=== PATIENT | female | born 1970 | race Caucasian/White ===

== ENCOUNTER → 2017-05-22 | Outpatient (CLI) | payer BC ==
--- NOTE | 2017-05-23 09:26 | MM ---
Reason for exam: screening (asymptomatic). Last mammogram was performed 1 year and 3 months ago. History: Patient history of other cancer. Family history of premenopausal breast cancer in aunt. Took hormonal contraceptives for 20 years beginning at age 23. Physical Findings: A clinical breast exam by your physician is recommended on an annual basis and results should be correlated with mammographic findings. MG 3D Screening Mammo W/Cad Bilateral CC and MLO view(s) were taken. Prior study comparison: February 28, 2016, bilateral MG 3d screening mammo w/cad. August 24, 2014, bilateral MG screening mammo w CAD. There are scattered fibroglandular densities. There is no discrete abnormality. No significant changes when compared with prior studies. ASSESSMENT: Negative, BI-RAD 1 RECOMMENDATION: Routine screening mammogram of both breasts in 1 year.
== END | disposition home or self-care (01) ==
LOC: RADMAMWWP 10:59
PROVIDERS: ATTEND Obstetrics & Gynecology
DX: Z12.31 Encounter for screening mammogram for malignant neoplasm of breast (principal)
CPT/HCPCS: 77063; G0202

== ENCOUNTER → 2018-07-30 | Outpatient (CLI) | payer BC ==
--- NOTE | 2018-08-01 13:13 | MM ---
Reason for exam: screening (asymptomatic). Last mammogram was performed 1 year and 2 months ago. History: Patient history of other cancer. Family history of premenopausal breast cancer in aunt. Took hormonal contraceptives for 20 years beginning at age 23. Physical Findings: A clinical breast exam by your physician is recommended on an annual basis and results should be correlated with mammographic findings. MG 3D Screening Mammo W/Cad Bilateral CC and MLO view(s) were taken. Prior study comparison: May 22, 2017, bilateral MG 3d screening mammo w/cad. February 28, 2016, bilateral MG 3d screening mammo w/cad. There are scattered fibroglandular densities. No significant changes when compared with prior studies. ASSESSMENT: Negative, BI-RAD 1 RECOMMENDATION: Routine screening mammogram of both breasts in 1 year.
== END | disposition home or self-care (01) ==
LOC: RADMAMWWP 16:00
PROVIDERS: ATTEND Obstetrics & Gynecology
DX: Z12.31 Encounter for screening mammogram for malignant neoplasm of breast (principal); Z80.3 Family history of malignant neoplasm of breast
CPT/HCPCS: 77063; 77067

== ENCOUNTER → 2019-08-01 | Outpatient (CLI) | payer BC ==
--- NOTE | 2019-08-04 10:31 | MM ---
Reason for exam: screening (asymptomatic). Last mammogram was performed 1 year ago. History: Patient history of other cancer. Family history of premenopausal breast cancer in aunt. Took hormonal contraceptives for 26 years beginning at age 23. Physical Findings: A clinical breast exam by your physician is recommended on an annual basis and results should be correlated with mammographic findings. MG 3D Screening Mammo W/Cad Bilateral CC and MLO view(s) were taken. Prior study comparison: July 30, 2018, bilateral MG 3d screening mammo w/cad. May 22, 2017, bilateral MG 3d screening mammo w/cad. There are scattered fibroglandular densities. There is no discrete abnormality. No significant changes when compared with prior studies. ASSESSMENT: Negative, BI-RAD 1 RECOMMENDATION: Routine screening mammogram of both breasts in 1 year.
== END | disposition home or self-care (01) ==
LOC: RADMAMWWP 16:10
PROVIDERS: ATTEND Obstetrics & Gynecology
DX: Z12.31 Encounter for screening mammogram for malignant neoplasm of breast (principal)
CPT/HCPCS: 77063; 77067

== ENCOUNTER → 2021-03-08 | Outpatient (CLI) | payer BC ==
--- NOTE | 2021-03-10 13:40 | MM ---
Reason for exam: screening (asymptomatic). Last mammogram was performed 1 year and 7 months ago. History: Patient has history of other cancer at age 40. Family history of breast cancer in cousin and premenopausal breast cancer in aunt. Took hormonal contraceptives for 26 years beginning at age 23. Physical Findings: A clinical breast exam by your physician is recommended on an annual basis and results should be correlated with mammographic findings. MG 3D Screening Mammo W/Cad Bilateral CC and MLO view(s) were taken. Prior study comparison: August 01, 2019, bilateral MG 3d screening mammo w/cad. July 30, 2018, bilateral MG 3d screening mammo w/cad. There are scattered fibroglandular densities. No significant changes when compared with prior studies. ASSESSMENT: Benign, BI-RAD 2 RECOMMENDATION: Routine screening mammogram of both breasts in 1 year.
== END | disposition home or self-care (01) ==
LOC: RADMAMWWP 14:54
PROVIDERS: ATTEND Obstetrics & Gynecology
DX: Z12.31 Encounter for screening mammogram for malignant neoplasm of breast (principal); Z80.3 Family history of malignant neoplasm of breast
CPT/HCPCS: 77063; 77067

== ENCOUNTER 2022-05-03 16:35 | Emergency (ER) | payer BC ==
[2022-05-03 18:27] LABS: Basophils # (A) 0.1 k/uL (0-0.2); Basophils % (A) 1 %; Eosinophils # (A) 0.1 k/uL (0-0.7); Eosinophils % (A) 1 %; HCT 45.1 % (34.0-46.0); HGB 13.8 gm/dL (11.4-16.0); Hypochromasia Slight; Lymphocytes # (A) 1.7 k/uL (1.0-4.8); Lymphocytes % (A) 15 %; MCH 28.9 pg (25.0-35.0); MCHC 30.7 g/dL (31.0-37.0); MCV 94.3 fL (80.0-100.0); Mean Platelet Volume 8.4; Monocytes # (A) 0.5 k/uL (0-1.0); Monocytes % (A) 4 %; Neutrophils # (A) 9.1 k/uL (1.3-7.7); Neutrophils % (A) 79 %; Platelet Count 419 k/uL (150-450); RBC 4.78 m/uL (3.80-5.40); RDW 13.3 % (11.5-15.5); WBC 11.6 k/uL (3.8-10.6)
[2022-05-03 18:37] LABS: ALT 12 U/L (4-34); AST 21 U/L (14-36); African American GFR (CKD) >90 (>60 ml/min/1.73 sqM); Albumin 4.6 g/dL (3.5-5.0); Alkaline Phosphatase 101 U/L (38-126); Amylase 59 U/L (30-110); Anion Gap 10 mmol/L; Blood Urea Nitrogen 8 mg/dL (7-17); Calcium 9.4 mg/dL (8.4-10.2); Carbon Dioxide 22 mmol/L (22-30); Chloride 108 mmol/L (98-107); Glucose 104 mg/dL (74-99); Lipase 69 U/L (23-300); Non-African American GFR(CKD) >90 (>60 ml/min/1.73 sqM); Potassium 4.2 mmol/L (3.5-5.1); Sodium 140 mmol/L (137-145); Total Bilirubin 0.4 mg/dL (0.2-1.3); Total Protein 7.6 g/dL (6.3-8.2)
[2022-05-03] MEDS ORDERED: ONDANSETRON 4 MG/2 ML VIAL IVP STA (18:43)
[2022-05-03] MEDS ORDERED: SODIUM CHLORIDE 0.9% 1,000 ML IV STA (18:43)
--- NOTE | 2022-05-03 18:52 | ED ---
General Adult HPI - General Chief complaint: Nausea/Vomiting/Diarrhea Stated complaint: dizzy, chills, vomiting Time Seen by Provider: 05/03/22 18:30 Source: patient, RN notes reviewed Mode of arrival: ambulatory Limitations: no limitations - History of Present Illness Initial comments: 52-year-old female presents to the emergency department for evaluation of "feeling poorly." Patient states her symptoms began yesterday with a mild headache, followed by nausea, then felt as if she "just stepped off a roller coaster." Patient states she has had 3 episodes of vomiting with oral intake today. States she continues to feel unwell, but does not describe it as dizzy or lightheaded in particular. States she feels worse with eye movement and felt sick when she looked out the side window in the car. Denies fever, chills, blurry vision, sick exposures, chest pain, cough, difficulty breathing, abdominal pain, diarrhea, dysuria, hematuria, or lower extremity edema. - Related Data Home Medications Medication Instructions Recorded Confirmed Levothyroxine Sodium [Synthroid] 125 mcg PO DAILY 05/03/22 05/03/22 Liothyronine Sodium [Cytomel] 5 mcg PO HS 05/03/22 05/03/22 Liothyronine Sodium [Cytomel] 10 mcg PO DAILY 05/03/22 05/03/22 Norethindrone-E.estradiol-Iron 1 tab PO DAILY 05/03/22 05/03/22 [Cecily 24 Fe 1 mg-20 Mcg Tablet] Previous Rx's Medication Instructions Recorded Meclizine [Antivert] 25 mg PO TID PRN #30 tab 05/03/22 Ondansetron Odt [Zofran Odt] 4 mg PO Q8HR PRN #10 tab 05/03/22 Allergies Allergy/AdvReac Type Severity Reaction Status Date / Time No Known Allergies Allergy Verified 05/03/22 20:03 Review of Systems ROS Statement: Those systems with pertinent positive or pertinent negative responses have been documented in the HPI. ROS Other: All systems not noted in ROS Statement are negative. Past Medical History Past Medical History: Thyroid Disorder Additional Past Medical History / Comment(s): MS History of Any Multi-Drug Resistant Organisms: None Reported Past Surgical History: Appendectomy, Section Additional Past Surgical History / Comment(s): thyroid removal Past Psychological History: No Psychological Hx Reported Smoking Status: Never smoker Past Alcohol Use History: Occasional Past Drug Use History: None Reported General Exam Limitations: no limitations (Well-developed, well-nourished female in no acute distress. Initial temperature 97.9, pulse 78, respiration 16, blood pressure 119/77, pulse ox 100% on room air.) General appearance: alert, in no apparent distress Head exam: Present: atraumatic, normocephalic, normal inspection Eye exam: Present: normal appearance, PERRL, EOMI. Absent: scleral icterus, conjunctival injection, nystagmus, periorbital swelling ENT exam: Present: normal exam, normal oropharynx, mucous membranes moist, TM's normal bilaterally Neck exam: Present: normal inspection, full ROM. Absent: tenderness, meningismus, lymphadenopathy Respiratory exam: Present: normal lung sounds bilaterally. Absent: respiratory distress, wheezes, rales, rhonchi, stridor, chest wall tenderness Cardiovascular Exam: Present: regular rate, normal rhythm, normal heart sounds. Absent: systolic murmur, diastolic murmur, rubs, gallop, clicks GI/Abdominal exam: Present: soft, normal bowel sounds. Absent: distended, tenderness, guarding, rebound, rigid Back exam: Present: normal inspection. Absent: CVA tenderness (R), CVA tenderness (L) Neurological exam: Present: alert, oriented X3, CN II-XII intact Expanded Patient oriented to: Present: person, place, time Speech: Present: fluid speech Cranial nerves: EOM's Intact: Normal, Nystagmus: Normal Cerebellar function: Finger to Nose: Normal Motor strength exam: RUE: 5, LUE: 5, RLE: 5, LLE: 5 Eye Response: (4) open spontaneously Motor Response: (6) obeys commands Verbal Response: (5) oriented Amber Total: 15 Psychiatric exam: Present: normal affect, normal mood Skin exam: Present: warm, dry, intact, normal color. Absent: rash Course Vital Signs 05/03/22 05/03/22 05/03/22 17:34 21:21 22:54 Temperature 97.9 F Pulse Rate 78 60 80 Respiratory 16 18 18 Rate Blood Pressure 119/77 116/59 124/72 O2 Sat by Pulse 100 98 98 Oximetry - Reevaluation(s) Reevaluation #1: 05/03/22 21:00 Upon reassessment, patient is resting comfortably as long as she does not move. Is awaiting IV fluids and Zofran. We will reassess after treatment. Updated on findings from CT and laboratory studies. Patient does confirm that she is on her menstrual cycle therefore provides reasonable explanation for presence of blood in urine. 05/03/22 22:15 Patient is feeling markedly improved after fluids and Zofran. Discussed my suspicion that this is vertiginous in nature. She will be given a dose of meclizine and discharged home to follow up with her PCP as needed. Medical Decision Making - Medical Decision Making 52-year-old female presents to the emergency department for evaluation after feeling poorly for the past 24 hours. Upon exam, patient is well-appearing and in no acute distress. Vital signs are stable. She is neurologically intact with no focal deficit. Symptoms are worsened with side to side eye movement. She had 3 episodes of vomiting prior to arrival, though none while present in the emergency department. CT of the brain was obtained and was negative. Laboratory studies were reviewed. Patient has mild leukocytosis likely reactive to vomiting. Urinalysis shows large amount of blood attributed to patient's menstrual cycle. EKG shows normal sinus rhythm. Patient did receive IV fluids and Zofran with significant improvement. Patient's symptoms are likely vertiginous in nature. She was given a dose of Antivert prior to departure. She is instructed to follow up with her PCP for a recheck. Meclizine and Zofran were prescribed. Return parameters discussed in detail. Patient verbalizes understanding and agrees with this plan. Attending: Sheridan. - Lab Data Result diagrams: 05/03/22 18:00 05/03/22 18:00 Lab Results 05/03/22 05/03/22 05/03/22 Range/Units 18:00 18:00 18:00 WBC 11.6 H (3.8-10.6) k/uL RBC 4.78 (3.80-5.40) m/uL Hgb 13.8 (11.4-16.0) gm/dL Hct 45.1 (34.0-46.0) % MCV 94.3 (80.0-100.0) fL MCH 28.9 (25.0-35.0) pg MCHC 30.7 L (31.0-37.0) g/dL RDW 13.3 (11.5-15.5) % Plt Count 419 (150-450) k/uL MPV 8.4 Neutrophils % 79 % Lymphocytes % 15 % Monocytes % 4 % Eosinophils % 1 % Basophils % 1 % Neutrophils # 9.1 H (1.3-7.7) k/uL Lymphocytes # 1.7 (1.0-4.8) k/uL Monocytes # 0.5 (0-1.0) k/uL Eosinophils # 0.1 (0-0.7) k/uL Basophils # 0.1 (0-0.2) k/uL Hypochromasia Slight Sodium 140 (137-145) mmol/L Potassium 4.2 (3.5-5.1) mmol/L Chloride 108 H (98-107) mmol/L Carbon Dioxide 22 (22-30) mmol/L Anion Gap 10 mmol/L BUN 8 (7-17) mg/dL Creatinine 0.70 (0.52-1.04) mg/dL Est GFR (CKD-EPI)AfAm >90 (>60 ml/min/1.73 sqM) Est GFR (CKD-EPI)NonAf >90 (>60 ml/min/1.73 sqM) Glucose 104 H (74-99) mg/dL Calcium 9.4 (8.4-10.2) mg/dL Total Bilirubin 0.4 (0.2-1.3) mg/dL AST 21 (14-36) U/L ALT 12 (4-34) U/L Alkaline Phosphatase 101 (38-126) U/L Troponin I (0.000-0.034) ng/mL Total Protein 7.6 (6.3-8.2) g/dL Albumin 4.6 (3.5-5.0) g/dL Amylase 59 (30-110) U/L Lipase 69 (23-300) U/L Urine Color Light Yellow Urine Appearance Clear (Clear) Urine pH 5.5 (5.0-8.0) Ur Specific [place] 1.008 (1.001-1.035) Urine Protein Negative (Negative) Urine Glucose (UA) Negative (Negative) Urine Ketones Negative (Negative) Urine Blood Large H (Negative) Urine Nitrite Negative (Negative) Urine Bilirubin Negative (Negative) Urine Urobilinogen <2.0 (<2.0) mg/dL Ur Leukocyte Esterase Negative (Negative) Urine RBC >182 H (0-5) /hpf Urine WBC 6 H (0-5) /hpf Ur Squamous Epith Cells <1 (0-4) /hpf Urine Bacteria Rare H (None) /hpf Urine Mucus Rare H (None) /hpf 05/03/22 Range/Units 20:50 WBC (3.8-10.6) k/uL RBC (3.80-5.40) m/uL Hgb (11.4-16.0) gm/dL Hct (34.0-46.0) % MCV (80.0-100.0) fL MCH (25.0-35.0) pg MCHC (31.0-37.0) g/dL RDW (11.5-15.5) % Plt Count (150-450) k/uL MPV Neutrophils % % Lymphocytes % % Monocytes % % Eosinophils % % Basophils % % Neutrophils # (1.3-7.7) k/uL Lymphocytes # (1.0-4.8) k/uL Monocytes # (0-1.0) k/uL Eosinophils # (0-0.7) k/uL Basophils # (0-0.2) k/uL Hypochromasia Sodium (137-145) mmol/L Potassium (3.5-5.1) mmol/L Chloride (98-107) mmol/L Carbon Dioxide (22-30) mmol/L Anion Gap mmol/L BUN (7-17) mg/dL Creatinine (0.52-1.04) mg/dL Est GFR (CKD-EPI)AfAm (>60 ml/min/1.73 sqM) Est GFR (CKD-EPI)NonAf (>60 ml/min/1.73 sqM) Glucose (74-99) mg/dL Calcium (8.4-10.2) mg/dL Total Bilirubin (0.2-1.3) mg/dL AST (14-36) U/L ALT (4-34) U/L Alkaline Phosphatase (38-126) U/L Troponin I <0.012 (0.000-0.034) ng/mL Total Protein (6.3-8.2) g/dL Albumin (3.5-5.0) g/dL Amylase (30-110) U/L Lipase (23-300) U/L Urine Color Urine Appearance (Clear) Urine pH (5.0-8.0) Ur Specific [place] (1.001-1.035) Urine Protein (Negative) Urine Glucose (UA) (Negative) Urine Ketones (Negative) Urine Blood (Negative) Urine Nitrite (Negative) Urine Bilirubin (Negative) Urine Urobilinogen (<2.0) mg/dL Ur Leukocyte Esterase (Negative) Urine RBC (0-5) /hpf Urine WBC (0-5) /hpf Ur Squamous Epith Cells (0-4) /hpf Urine Bacteria (None) /hpf Urine Mucus (None) /hpf - EKG Data EKG shows normal: sinus rhythm Rate: normal EKG Comments: EKG is obtained at 2217 showing sinus rhythm. Ventricular rate 64, MS interval 197, QRS duration 84, QT/QTc 401/411. Interpretation normal ECG. - Radiology Data Radiology results: report reviewed, image reviewed CT of the brain was obtained. Report was reviewed in its entirety. Impression per Dr. Blackmon is negative unenhanced head computed tomography scan. Disposition Clinical Impression: Vertigo Disposition: HOME SELF-CARE Condition: Stable Instructions (If sedation given, give patient instructions): Vertigo (ED) Additional Instructions: Increase your intake of fluids as tolerated. Take Zofran if needed for nausea. Antivert/Meclizine is for "dizziness" Follow up with your PCP for a recheck on Sunday. Return to the emergency department with any new, worsening, or concerning symptoms. Prescriptions: Meclizine [Antivert] 25 mg PO TID PRN #30 tab PRN Reason: dizziness Ondansetron Odt [Zofran Odt] 4 mg PO Q8HR PRN #10 tab PRN Reason: Nausea Is patient prescribed a controlled substance at d/c from ED?: No Referrals: None,Stated [Primary Care Provider] - 1-2 days
[2022-05-03 18:57] LABS: Appearance,Urine Clear (Clear); Bacteria,Urine Rare /hpf; Bilirubin,Urine Negative (Negative); Blood,Urine Large (Negative); Color,Urine Light Yellow; Glucose,Urine (UA) Negative (Negative); Ketones,Urine Negative (Negative); Leukocyte Esterase,Urine Negative (Negative); Mucus,Urine Rare /hpf; Nitrite,Urine Negative (Negative); PH, Urine 5.5 (5.0-8.0); Protein,Urine Negative (Negative); RBC,Urine >182 /hpf (0-5); Specific Gravity,Urine 1.008 (1.001-1.035); Squamous Epithelial Cell,Urine <1 /hpf (0-4); Urobilinogen,Urine <2.0 mg/dL (<2.0); WBC,Urine 6 /hpf (0-5)
[2022-05-03 18:58] VITALS: TEMP 97.9
--- NOTE | 2022-05-03 20:51 | CT ---
EXAMINATION TYPE: CT brain wo con DATE OF EXAM: 05/03/2022 COMPARISON: None HISTORY: headache, dizziness CT DLP: 1110.4 mGycm Automated exposure control for dose reduction was used. Images of the brain obtained with no contrast. Ventricles have normal size. There is no mass effect or midline shift. No sign of intracranial hemorr sally. Calvarium is intact. There is normal aeration of the mastoid sinuses. The skull base is intact. IMPRESSION: Negative unenhanced head CT scan.
[2022-05-03 21:22] VITALS: RESP 18
[2022-05-03] MEDS ORDERED: MECLIZINE 12.5 MG TAB PO STA (22:22)
[2022-05-03] MEDS ORDERED: ONDANSETRON 4 MG ODT STARTER PACK 2 TAB BTL PO STA (22:22)
[2022-05-03 22:57] VITALS: BP 124/72; PULSE 80
== END 2022-05-03 23:05 | disposition home or self-care (01) ==
LOC: EC 16:35
DX: R42 Dizziness and giddiness (principal); E07.9 Disorder of thyroid, unspecified; Z79.890 Hormone replacement therapy
CPT/HCPCS: 96374; 99284; 96361; 36415; 93005; 80053; 82150; 83690; 84484; 85025; 81001; 70450; J2405; S0119

== ENCOUNTER → 2022-08-21 | Outpatient (CLI) | payer BC, OTHER ==
[2022-08-22 01:50] LABS: African American GFR (CKD) 91.7 (60.0-200.0); Anion Gap 14.7 mmol/L (10.00-18.00); Blood Urea Nitrogen 8.1 mg/dL (9.0-27.0); Carbon Dioxide 22.3 mmol/L (20.0-27.5); Non-African American GFR(CKD) 79.1 (60.0-200.0)
[2022-08-22 02:10] LABS: C-Peptide 3.62 ng/mL (0.81-3.85)
== END | disposition home or self-care (01) ==
LOC: LABWHC1 15:18
PROVIDERS: ATTEND Family Medicine
DX: Z00.00 Encounter for general adult medical examination without abnormal findings (principal)
CPT/HCPCS: 36415; 80051; 82565; 83036; 84520; 84681

== ENCOUNTER → 2023-07-18 | Outpatient (CLI) | payer BC, OTHER ==
--- NOTE | 2023-07-19 08:21 | MM ---
Reason for Exam: Screening (asymptomatic). Last screening mammogram was performed 12 month(s) ago. Patient History: Menarche at age 15. First Full-Term at age 31. Perimenopausal. Other cancer, age 40. Hormonal Contraceptives for 26 years from age 23 until age 49. Maternal cousin had breast cancer, age 35. Maternal aunt had breast cancer, age 40. Risk Values: Erin 5 year model risk: 1.1%. NCI Lifetime model risk: 9.7%. Prior Study Comparison: 08/01/2019 Bilateral Screening Mammogram, [facility]. 03/08/2021 Bilateral Screening Mammogram, [facility]. 07/14/2022 Bilateral MG 3D screening mammo w/cad, [facility]. Tissue Density: There are scattered fibroglandular densities. Findings: Analyzed By CAD. There is no suspicious group of microcalcifications or new suspicious mass in either breast. Benign calcifications within both breasts. Overall Assessment: Benign, BI-RAD 2 Management: Screening Mammogram of both breasts in 1 year. A clinical breast exam by your physician is recommended on an annual basis and results should be correlated with mammographic findings. Note on Erin scores and lifetime risk: 1. A Erin score greater than 3% is considered moderate risk. If this is the case, consider specialist referral to assess eligibility for a risk reducing agent. If overall lifetime risk for the development of breast cancer is 20% or higher, the patient may qualify for future screening with alternating mammogram and breast MRI. Electronically signed and approved by: Tejas Hernandez D.O.
== END | disposition home or self-care (01) ==
LOC: RADMAMWWP 13:54
PROVIDERS: ATTEND Obstetrics & Gynecology
DX: Z12.31 Encounter for screening mammogram for malignant neoplasm of breast (principal); Z80.3 Family history of malignant neoplasm of breast
CPT/HCPCS: 77063; 77067

== ENCOUNTER → 2024-08-12 | Outpatient (CLI) | payer BC ==
--- NOTE | 2024-08-13 22:50 | MM ---
Reason for Exam: Screening (asymptomatic). Last mammogram was performed 1 year(s) and 1 month(s) ago. Patient History: Menarche at age 15. First Full-Term at age 31. Perimenopausal. Other cancer, age 40. Hormonal Contraceptives for 26 years from age 23 until age 49. Paternal cousin had breast cancer, age 35. Paternal aunt had breast cancer, age 40. Risk Values: Erin 5 year model risk: 1.2%. NCI Lifetime model risk: 9.6%. Prior Study Comparison: 03/08/2021 Bilateral Screening Mammogram, [facility]. 07/14/2022 Bilateral MG 3D screening mammo w/cad, [facility]. 07/18/2023 Bilateral MG 3D screening mammo w/cad, [facility]. Tissue Density: There are scattered areas of fibroglandular density. Findings: Analyzed By CAD. The pattern is symmetrical. No significant interval change is evident. Benign calcification is within the right breast. No suspicious groups of microcalcifications, spiculated or lobular masses, architectural distortion or other secondary signs of malignancy are mammographically apparent. Overall Assessment: Benign, BI-RAD 2 Management: Screening Mammogram of both breasts in 1 year. A negative mammogram report should not preclude additional follow up of suspicious palpable abnormalities. Patient should continue monthly self breast exam. A clinical breast exam by your physician is recommended on an annual basis and results should be correlated with mammographic findings. Note on Erin scores and lifetime risk: 1. A Erin score greater than 3% is considered moderate risk. If this is the case, consider specialist referral to assess eligibility for a risk reducing agent. 2. If overall lifetime risk for the development of breast cancer is 20% or higher, the patient may qualify for future screening with alternating mammogram and breast MRI. [facility], , 08/13/2024 10:48 PM. Electronically signed and approved by: Navin Bradford D.O. Radiologis
== END | disposition home or self-care (01) ==
LOC: RADMAMWWP 15:06
PROVIDERS: ATTEND Obstetrics & Gynecology
CPT/HCPCS: 77063; 77067

== ENCOUNTER → 2025-06-12 | Outpatient (CLI) | payer BC ==
--- NOTE | 2025-06-12 11:22 | CT ---
EXAMINATION TYPE: CT soft tissue neck wo con DATE OF EXAM: 06/12/2025 10:46 AM COMPARISON: None. CLINICAL INDICATION: Female, 55 years old with history of R22.1 LOCALIZED SWELLING, MASS AND LUMP, NE CK; PHH, localized swelling, mass and lump in neck TECHNIQUE: CT soft tissues neck without contrast. Coronal and sagittal reconstructions performed. CT DLP: 287 mGycm, Automated exposure control for dose reduction was used. FINDINGS: Lack of IV contrast limits assessment of the cervical mucosal space, lymph nodes, and vascular struct ures. Allowing for this limitation, visualized intracranial structures, orbits and globes, and mastoid air cells appear clear. Very minimal rightward nasal septal deviation. Trace mucosal thickening left ethmoid air cells. No gross abnormality of the nasopharynx or oropharynx. Epiglottis and prevertebral soft tissues appear satisfactory. Glottic and subglottic structures as well as the tracheal column and visualized upper lungs appear cl ear. Allowing for noncontrast technique, the thyroid gland is not adequately visualized. Unclear if it is very small or absent. Submandibular gland satisfactory. Parotid glands slightly atrophic. No cervical lymphadenopathy by CT size criteria. Moderate degenerative disc disease C5-C6. Degenerative bony ankylosis involving the posterior facet j oints at C2-C3. IMPRESSION: 1. No suspicious mass or cervical adenopathy clearly identified allowing for noncontrast technique. I f there is persistent concern, the exam can be reviewed with directed attention. 2. Thyroid gland either very small or surgically absent. Clinically correlate. [facility], , 06/12/2025 11:20 AM
== END | disposition home or self-care (01) ==
LOC: RADCTMAIN 10:23
PROVIDERS: ATTEND Family Medicine
DX: R22.1 Localized swelling, mass and lump, neck (principal)
CPT/HCPCS: 70490